=== PATIENT | female | born 1950 | race Caucasian/White ===

== ENCOUNTER 2020-11-21 10:52 | Outpatient (CLI) | payer OTHER ==
[~2020-11-21 10:52] MED LIST: CIPRO500 MG PO; HYZAAR 100-251 UDTAB; PEPCID20 MG PO; SYNTHROID50 MCG
== END 2020-11-21 11:14 | disposition home or self-care (01) ==
LOC: MRI 10:52
DX: M67.813 Other specified disorders of tendon, right shoulder (principal); M25.811 Other specified joint disorders, right shoulder; M75.121 Complete rotator cuff tear or rupture of right shoulder, not specified as traumatic
CPT/HCPCS: 73221

== ENCOUNTER 2023-09-11 20:43 | Emergency (ER) | payer OTHER ==
[~2023-09-11] VITALS: Ht 157.5 cm; Wt 80.7 kg
[2023-09-11 22:00] LABS: HEMATOCRIT 33.4 % (36.0-45.00); HEMOGLOBIN 11.8 g/dL (12.0-15.00); MEAN CELL VOLUME 96.1 fL (80.00-100.00); MEAN CORPUSCULAR HEMOGLOBIN 33.8 pg (27.00-32.0); MEAN CORPUSCULAR HGB CONC 35.2 g/dl (32.0-36.0); PLATELET COUNT 310 K/uL (150-450); RED BLOOD COUNT 3.48 M/uL (4.00-6.00); RED CELL DISTRIBUTION WIDTH 12.9 % (11.5-14.5)
[2023-09-11 22:30] LABS: ALBUMIN 3.9 gm/dL (3.4-5.0); BILIRUBIN TOTAL 0.26 mg/dL (0.3-1.2); CALCIUM 9.5 mg/dL (8.5-10.1); CREATININE SERUM 1.27 mg/dL (0.55-1.02); GFR 41.48; GLOBULINA 3.1 G/DL (2.4-3.5); POTASSIUM 3.33 mEq/L (3.5-5.1)
== END 2023-09-12 01:18 | disposition home or self-care (01) ==
LOC: ER 20:43
PROVIDERS: Emergency Medicine
DX: F10.129 Alcohol abuse with intoxication, unspecified (principal); E03.9 Hypothyroidism, unspecified; I10 Essential (primary) hypertension; E11.9 Type 2 diabetes mellitus without complications; Z88.0 Allergy status to penicillin; Z88.2 Allergy status to sulfonamides; Z88.6 Allergy status to analgesic agent
CPT/HCPCS: 36415; 96365; 96366; 99284; J2405; J3490; J7030

== ENCOUNTER 2023-11-12 10:23 | Emergency (ER) | payer OTHER ==
[~2023-11-12] VITALS: Ht 157.5 cm; Wt 86.6 kg
[2023-11-12] MEDS ORDERED: HYZAAR 100-251 EACH PO (10:47)
[2023-11-12] MEDS ORDERED: SYNTHROID88 MCG PO (10:47)
[2023-11-12] MEDS ORDERED: TOPROL XL25 M1 PO (10:48)
[2023-11-12] MEDS ORDERED: METFORMIN HCL500 M3 (10:48)
[2023-11-12] MEDS ORDERED: LYRICA300 MG PO (10:48)
[2023-11-12 12:32] LABS: HEMATOCRIT 33.6 % (36.0-45.00); HEMOGLOBIN 11.7 g/dL (12.0-15.00); MEAN CELL VOLUME 93.6 fL (80.00-100.00); MEAN CORPUSCULAR HEMOGLOBIN 32.7 pg (27.00-32.0); MEAN CORPUSCULAR HGB CONC 34.9 g/dl (32.0-36.0); PLATELET COUNT 317 K/uL (150-450); RED BLOOD COUNT 3.59 M/uL (4.00-6.00); RED CELL DISTRIBUTION WIDTH 12.7 % (11.5-14.5)
[2023-11-12] MEDS ORDERED: CEFTRIAXONE SODIUM 1,000 MG VIAL IM STA (13:04)
[2023-11-12] MEDS ORDERED: ZITHROMAX500 MG PO (13:20)
== END 2023-11-12 13:34 | disposition home or self-care (01) ==
LOC: ER 10:23
PROVIDERS: Emergency Medicine
DX: J06.9 Acute upper respiratory infection, unspecified (principal); Z88.6 Allergy status to analgesic agent; Z88.0 Allergy status to penicillin; Z91.013 Allergy to seafood; I10 Essential (primary) hypertension; E11.9 Type 2 diabetes mellitus without complications; Z79.84 Long term (current) use of oral hypoglycemic drugs
CPT/HCPCS: 96372; 99282; J0696

== ENCOUNTER 2025-01-31 12:23 | Emergency (ER) | payer OTHER ==
[~2025-01-31] VITALS: Ht 157.5 cm; Wt 78.9 kg
[~2025-01-31 12:23] MED LIST changes: +HYZAAR 100-251 EACH PO; +LYRICA300 MG PO; +METFORMIN HCL500 M3; +SYNTHROID88 MCG PO; +TOPROL XL25 M1 PO; +ZITHROMAX500 MG PO
[2025-01-31] MEDS ORDERED: RINGERS SOLUTION,LACTATED 1,000 ML IV STA (13:11)
[2025-01-31 13:56] LABS: BASO % 0.5 % (0.1-1.2); EOS # 0.06 (0.04-0.54); EOS % 0.6 % (0.7-7.0); HEMATOCRIT 35.4 % (34.1-44.9); HEMOGLOBIN 12.6 g/dL (11.2-15.7); LYMPH % 14.7 % (19.3-53.1); MEAN CORPUSCULAR HEMOGLOBIN 32.5 pg (25.6-32.2); MONO # 0.81 (0.24-0.82); MONO % 8.5 % (4.7-12.5); NEUT # 7.19 (1.56-6.13); NEUT % 75.5 % (34.0-71.1); PLATELET COUNT 308 K/uL (163-369); RED BLOOD COUNT 3.88 M/uL (3.93-5.22); RED CELL DISTRIBUTION WIDTH 12.2 % (11.6-14.4)
[2025-01-31 14:55] LABS: CALCIUM 9.5 mg/dL (8.5-10.1); CREATININE SERUM 0.89 mg/dL (0.55-1.02); GFR 62.17; POTASSIUM 3.97 mEq/L (3.5-5.1)
[2025-01-31 16:00] LABS: URINE APPEARANCE Clear; URINE BILIRRUBIN Negative (NEGATIVE); URINE BLOOD Negative; URINE COLOR Dark Yellow; URINE GLUCOSE Negative (NEGATIVE); URINE KETONE Negative (NEGATIVE); URINE LEUKOCYTE Trace; URINE NITRATE Negative; URINE PROTEIN Negative (NEGATIVE)
[2025-01-31 16:04] LABS: URINE BACTERIA 2375.4 uL (0.0-1933); URINE EPITHELIAL CELLS 103.9 uL (0.0-38.8); URINE RBC 13.8 uL (0.0-20.8); URINE WBC 11.3 uL (0.0-23.2)
[2025-01-31 16:08] LABS: URINE CAST 0.29 uL (0.0-1.40)
== END 2025-01-31 16:26 | disposition home or self-care (01) ==
LOC: ER 12:23
PROVIDERS: General Practice
DX: R55 Syncope and collapse (principal); Z88.0 Allergy status to penicillin; Z91.013 Allergy to seafood; I49.8 Other specified cardiac arrhythmias; I10 Essential (primary) hypertension

== ENCOUNTER 2025-05-06 08:49 | Emergency (ER) | payer OTHER ==
[~2025-05-06] VITALS: Ht 157.5 cm; Wt 75.7 kg
[2025-05-06] MEDS ORDERED: TETANUS & DIPHTHERIA TOX,ADULT 0.5 ML VIAL IM ONE (09:45)
== END 2025-05-06 11:14 | disposition home or self-care (01) ==
LOC: ER 08:53
DX: S01.01XA Laceration without foreign body of scalp, initial encounter (principal); W06.XXXA Fall from bed, initial encounter; Y93.89 Activity, other specified; Y92.013 Bedroom of single-family (private) house as the place of occurrence of the external cause; Y99.9 Unspecified external cause status; R55 Syncope and collapse; E11.9 Type 2 diabetes mellitus without complications; Z79.84 Long term (current) use of oral hypoglycemic drugs; I10 Essential (primary) hypertension; E03.9 Hypothyroidism, unspecified; Z88.6 Allergy status to analgesic agent; Z88.0 Allergy status to penicillin; Z91.013 Allergy to seafood